=== PATIENT | male | born 1970 | race Caucasian/White ===

== ENCOUNTER 2019-05-22 19:07 | Inpatient (IN) | payer BC ==
[~2019-05-22] VITALS: Ht 188 cm; Wt 121.1 kg
[2019-05-22 21:45] LABS: Basophils # (auto) 0.1 uL; Basophils % (auto) 0.7 % (0.0-2.0); Eosinophils # (auto) 0 uL; Eosinophils % (auto) 0.2 % (0.0-7.0); Hematocrit 36.5 % (41.0-53.0); Hemoglobin 12.8 g/dL (13.5-17.5); Lymphocytes # (auto) 1.3 uL; Lymphocytes % (auto) 11.1 % (10.0-50.0); Mean Corpuscular Hgb Conc. 34.9 g/dL (32.0-36.0); Mean Corpuscular Volume 85.8 fL (80.0-100.0); Monocytes # (auto) 0.7 uL; Monocytes % (auto) 6.4 % (0.0-12.0); Neutrophils # (auto) 9.4 uL; Neutrophils % (auto) 81.6 % (37.0-80.0); Platelet Count (auto) 294 10^3/uL (140-450); Red Blood Cells 4.26 10^6/uL (4.5-5.90); Red Cell Distribution Width 13.3 % (11.8-14.3); White Blood Cell 11.6 10^3/uL (4.4-10.8)
[2019-05-22] MEDS ORDERED: KETOROLAC TROMETH 15 mg/ml 1ML VL IV ONE (21:45)
[2019-05-22] MEDS ORDERED: SODIUM CHLORIDE 0.9% 1,000 ML IV ONE (21:45)
[2019-05-22] MEDS ORDERED: PIPERACILLIN-TAZO 4.5GM 100 ML IV ONE (21:45)
[2019-05-22] MEDS ORDERED: VANCOMYCIN 1GM/250ML 250 ML IV ONE (21:45)
[2019-05-22 21:58] LABS: Calcium 8.9 mg/dL (8.5-10.1); Potassium 3.9 mmol/L (3.5-5.1)
[2019-05-22 22:02] LABS: BUN/Creatinine Ratio 13.2; Bilirubin, Total 0.7 mg/dL (0.2-1.0)
[2019-05-22 22:27] LABS: Urine WBC None Seen /hpf (0 - 3)
[2019-05-22 22:49] LABS: Urine Bacteria NONE SEEN /hpf (None Seen); Urine Blood Negative /uL (Negative); Urine Specific Gravity 1.044 (1.001-1.035)
[2019-05-23] MEDS ORDERED: DEXTROSE (50%) 50ML SYRG IV PRN (02:15)
[2019-05-23] MEDS ORDERED: TEMAZEPAM 15 MG CAP PO PRN (02:15)
[2019-05-23] MEDS ORDERED: ACETAMINOPHEN 500 MG TAB PO PRN (02:15)
[2019-05-23] MEDS ORDERED: VANCOMYCIN PER PHARMACY 0 MG IV SCH (02:15)
[2019-05-23] MEDS ORDERED: ONDANSETRON HCL 4 MG/2 ML VIAL IV PRN (02:15)
[2019-05-23] MEDS ORDERED: SODIUM CHLORIDE 0.9% 1,000 ML IV ONE (02:15)
[2019-05-23 03:17] VITALS: BP 152/82
--- NOTE | 2019-05-23 03:17 | NUR ---
MS admit from [facility] admitted to tele/MS. Patient oriented to [facility] RN primary RN, unit, room, bed, and unit policies regarding patient care and visiting hours. Patient weighed by bedscale and encouraged to call if they need something. All questions and concerns addressed, patient verbalized understanding. Pt stated does not know home meds but will be able to provide later on with home meds. Will continue to monitor pt. Note:
[2019-05-23] MEDS: ACCU-CHEK COMFORT CURVE STRIP VI SCH ×6 (03:49→23:54)
[2019-05-23] MEDS: InsuLIN REG 1unit/0.01ml Soln (100units/ml) SC SCH ×6 (03:49→23:55)
[2019-05-23 05:12] VITALS: BP 152/82
[2019-05-23] MEDS: PIPERACILLIN-TAZOB 3.375GM 100 ML IV SCH ×4 (05:28→23:54)
[2019-05-23] MEDS: PANTOPRAZOLE 40 MG TAB PO SCH (06:41)
--- NOTE | 2019-05-23 07:23 | NUR ---
CLOSING NOTE Report endorsed to day RN, pt awake no s/sx's of distress or sob noted.
[2019-05-23] MEDS ORDERED: METF-371 PO (07:25)
--- NOTE | 2019-05-23 08:00 | NUR ---
Morning note patient resting in bed with even and unlabored respirations, no distress noted. Instructed patient on POC, fall precautions and to call for assistance. Patient verbalized understanding. Fall precautions in place with call light within reach. Will continue to monitor q1hr & PRN.
[2019-05-23 09:00] VITALS: BP 152/84
[2019-05-23] MEDS: LISINOPRIL 20 MG TAB PO SCH (09:16)
[2019-05-23 10:18] LABS: Basophils # (auto) 0.2 uL; Basophils % (auto) 1.7 % (0.0-2.0); Eosinophils # (auto) 0 uL; Eosinophils % (auto) 0.5 % (0.0-7.0); Lymphocytes % (auto) 10.1 % (10.0-50.0); Mean Corpuscular Hemoglobin 30.2 pg (28.0-32.0); Mean Corpuscular Hgb Conc. 35.2 g/dL (32.0-36.0); Mean Corpuscular Volume 85.9 fL (80.0-100.0); Monocytes # (auto) 0.6 uL; Monocytes % (auto) 6.4 % (0.0-12.0); Neutrophils # (auto) 7.8 uL; Neutrophils % (auto) 81.3 % (37.0-80.0); Platelet Count (auto) 266 10^3/uL (140-450); Red Blood Cells 3.96 10^6/uL (4.5-5.90); Red Cell Distribution Width 13.3 % (11.8-14.3); White Blood Cell 9.6 10^3/uL (4.4-10.8)
[2019-05-23 10:22] LABS: BUN/Creatinine Ratio 14.1; Calcium 8.3 mg/dL (8.5-10.1); Potassium 3.8 mmol/L (3.5-5.1)
--- NOTE | 2019-05-23 10:57 | NUR ---
Notified Dr. Alon Foster of MRI results MD verbalized understanding.
--- NOTE | 2019-05-23 11:00 | NUR ---
WOUND CARE NOTE: IN TO SEE PATIENT AT THIS TIME PER WOUND CARE CONSULT REQUEST. PATIENT RECENTLY ADMITTED TO [facility] WITH DIAGNOSIS OF OSTEOMYELITIS OF LEFT # 3 TOE, CELLULITIS. CURRENT BRIAN SCORE IS 20. PATIENT IS ABLE TO AMBULATE, SELF REPOSITION IN BED. PATIENT STATES THAT HE HIT HIS RIGHT # 3 TOE INTO A PIECE OF FURNITURE AT HOME WHILE BAREFOOT APPROXIMATELY ONE WEEK AGO. HE NOTED THE TRAUMA TO HIS TOE, BUT WORE HIS WORK BOOTS AND THICK SOCKS TO WORK FOR SEVERAL DAYS. PATIENT IS DIABETIC, DOES NOT RECEIVE ANY PODIATRY CARE. DIABETIC FOOT WOUND CARE EDUCATION GIVEN TO PATIENT AT THIS TIME, PATIENT VERBALIZED UNDERSTANDING. PATIENT BECAME CONCERNED WHEN WOUND TURNED BLACK. PATIENT HAS RIGHT FOOT NOTED WITH EDEMA, ERYTHEMA. HE HAS A CALLOUSED OVER DFU TO THE RIGHT PLANTAR FOOT DISTAL TO # 1 TOE. LEFT OPEN TO AIR. RIGHT # 3 TOE IS BLACK WITH NECROSIS. THERE IS SCANT SEROUS DRAINAGE NOTED, FOUL ODOR. WOUND CULTURE SENT TO LAB HAS PRELIMINARY OF BOTH GRAM POSITIVE AND NEGATIVE ORGANISMS PRESENT. WOUND PHOTOS TAKEN FOR REFERENCE AT THIS TIME. APPLIED DRY DRESSING. PODIATRY CONSULT IS PENDING. IN THE MEANTIME, PATIENT HAS HAD MRI TO RIGHT FOOT, WELL ULTRASOUND. RECOMMEND: ELEVATION OF LEFT FOOT FOR EDEMA CONTROL, EOD/PRN DRESSING CHANGE PER MD ORDER, DIETARY CONSULT. WILL DEFER ALL OTHER RECOMMENDATIONS TO PODIATRY, PENDING CONSULT. WOUND CARE TEAM WILL CONTINUE TO MONITOR. Addendum: 05/23/19 at 1659 by Cait Wahl RN Amended: Links added. Addendum: 05/23/19 at 1823 by Cait Wahl RN AMENDMENT: ALL WOUNDS ARE ON THE LEFT FOOT, NOT THE RIGHT.
--- NOTE | 2019-05-23 12:27 | NUR ---
Paged PICC line RN per protocol Spoke with CHARO Davila.
[2019-05-23] MEDS: VANCOMYCIN 1,500 MG in D5W 5% 250 ML IV SCH ×2 (12:33→21:59)
--- NOTE | 2019-05-23 12:46 | NUR ---
PICC line consent signed and placed in chart.
--- NOTE | 2019-05-23 12:53 | NUR ---
Notified MD of US results Dr. Alon Foster notified. verbalized understanding. Orders received and read back to verify.
[2019-05-23 13:00] VITALS: BP 143/86
--- NOTE | 2019-05-23 13:30 | NUR ---
IV started 22G IV started with clean technique to the LFA. IV secured. IV education provided. Patient verbalized understanding. Ordered IV medication administered per MD's order.
[2019-05-23 14:57] LABS: INR 1.07 (0.9-1.15); Partial Thromboplastin Time 27.6 sec (23.64-32.05)
--- NOTE | 2019-05-23 16:40 | NUR ---
PICC line placement Patient educated on need for PICC line placement. All risks and benefits explained and all questions and concerns addressed prior to procedure. Noted past medical history and allergies with no contraindications. INR and Plt counts within acceptable range. 5 fr PICC line inserted via right basilic vein using [employer] US and Tip Location System. Sterile technique with maximum barrier precautions utilized. Blood return obtained from each of the two lumens and each flushed easily with NS using proper technique. PICC secured with Stat-lock; biodisc and occlusive dressing applied. Stat portable chest x-ray obtained for PICC tip placement. *Baseline Arm Circumference 32 cm. *Internal Length 46 cm. *External Length 0 cm. *PICC lot #[id number]. Note: EBL 5mls. Tolerated well. Instructions for PICC care given, verbalized understanding.
[2019-05-23] MEDS ORDERED: LIDOCAINE 1% (LOCAL ANESTH.) PF 5ml SDV ID ONE (16:45)
[2019-05-23 17:00] VITALS: BP 158/87
--- NOTE | 2019-05-23 17:50 | NUR ---
Okay to use PICC line X-ray completed.
--- NOTE | 2019-05-23 18:56 | NUR ---
Closing note patient resting in bed with even and unlabored respirations, no distress noted. Fall precautions in place with call light within reach.
--- NOTE | 2019-05-23 19:29 | NUR ---
Care endorsed to HAJA Nicholas.
--- NOTE | 2019-05-23 19:35 | NUR ---
Opening Shift Note Received report from Theresa SMYTH. Assumed care of patient, awake and alert. No S/S of distress/SOB or pain. Instructed on POC and to call for assist PRN, will continue to monitor for changes Q1hr and PRN.
[2019-05-23] MEDS: MORPHINE SULF INJ 2 MG/ML SYRINGE 1ML IV PRN (20:25)
[2019-05-23 22:00] VITALS: BP 140/78
[2019-05-23] MEDS: SODIUM CHLOR 0.9% PF (SALINE LOCK) 10ML VIAL/SYR IV SCH (22:00)
[2019-05-24] MEDS: ACCU-CHEK COMFORT CURVE STRIP VI SCH ×6 (03:56→23:40)
[2019-05-24] MEDS: InsuLIN REG 1unit/0.01ml Soln (100units/ml) SC SCH ×6 (03:56→23:52)
[2019-05-24 04:46] VITALS: BP 155/77
[2019-05-24] MEDS: PIPERACILLIN-TAZOB 3.375GM 100 ML IV SCH ×4 (06:03→23:40)
--- NOTE | 2019-05-24 07:13 | NUR ---
Patient stable at this time, no complaints of pain. Endorsed care to Theresa SMYTH.
[2019-05-24 07:32] LABS: Basophils # (auto) 0.1 uL; Basophils % (auto) 0.8 % (0.0-2.0); Eosinophils # (auto) 0.1 uL; Eosinophils % (auto) 0.9 % (0.0-7.0); Hematocrit 33.4 % (41.0-53.0); Hemoglobin 11.6 g/dL (13.5-17.5); Lymphocytes # (auto) 1.1 uL; Mean Corpuscular Hemoglobin 29.8 pg (28.0-32.0); Mean Corpuscular Hgb Conc. 34.6 g/dL (32.0-36.0); Monocytes # (auto) 0.7 uL; Monocytes % (auto) 6.1 % (0.0-12.0); Neutrophils # (auto) 9.8 uL; Neutrophils % (auto) 83.2 % (37.0-80.0); Platelet Count (auto) 273 10^3/uL (140-450); Red Blood Cells 3.88 10^6/uL (4.5-5.90); Red Cell Distribution Width 13.1 % (11.8-14.3); White Blood Cell 11.8 10^3/uL (4.4-10.8)
[2019-05-24 07:53] LABS: Anion Gap 10 (5-15); BUN/Creatinine Ratio 11.4; Blood Urea Nitrogen 8 mg/dL (7-18); Calcium 8.3 mg/dL (8.5-10.1); Carbon Dioxide 25 mmol/L (21-32); Chloride 102 mmol/L (98-107); GFR African American 154 mL/min; GFR Non-African American 127 mL/min; Glucose 198 mg/dL (74-106); Potassium 3.9 mmol/L (3.5-5.1); Sodium 137 mmol/L (136-145)
[2019-05-24] MEDS: PANTOPRAZOLE 40 MG TAB PO SCH (08:33)
[2019-05-24] MEDS: LISINOPRIL 20 MG TAB PO SCH (08:33)
[2019-05-24] MEDS: SODIUM CHLOR 0.9% PF (SALINE LOCK) 10ML VIAL/SYR IV SCH ×2 (08:35→22:56)
--- NOTE | 2019-05-24 08:44 | NUR ---
IV discontinued IV removed from RAC with clean technique, catheter intact. Dressing applied. Patient tolerated well. No trauma to site.
[2019-05-24 09:00] VITALS: BP 151/83
[2019-05-24] MEDS: VANCOMYCIN 1,500 MG in D5W 5% 250 ML IV SCH ×2 (09:51→22:55)
[2019-05-24 13:00] VITALS: BP 147/82
[2019-05-24 17:00] VITALS: BP 147/77
--- NOTE | 2019-05-24 18:38 | NUR ---
Closing note patient resting in bed with even and unlabored respirations, no distress noted. Fall precautions in place with call light within reach.
--- NOTE | 2019-05-24 19:21 | NUR ---
Care endorsed HAJA Romano.
--- NOTE | 2019-05-24 20:00 | NUR ---
Opening Shift Note Assumed care of patient, awake and alert. No S/S of distress/SOB or pain. Instructed on POC and to call for assist PRN, will continue to monitor for changes Q1hr and PRN.Advised no food or drink after midnight..
[2019-05-24 21:30] VITALS: BP 159/82
[2019-05-24] MEDS: MORPHINE SULF INJ 2 MG/ML SYRINGE 1ML IV PRN (22:55)
[2019-05-25] MEDS: ACCU-CHEK COMFORT CURVE STRIP VI SCH ×5 (03:49→20:49)
[2019-05-25] MEDS: InsuLIN REG 1unit/0.01ml Soln (100units/ml) SC SCH ×5 (03:49→20:51)
[2019-05-25 04:51] VITALS: BP 153/82
[2019-05-25] MEDS: PIPERACILLIN-TAZOB 3.375GM 100 ML IV SCH (05:42)
[2019-05-25] MEDS: PANTOPRAZOLE 40 MG TAB PO SCH (06:33)
--- NOTE | 2019-05-25 07:12 | NUR ---
Report given to Markie Cardenas ,patient is resting no distress.
[2019-05-25 09:00] VITALS: BP 168/92
[2019-05-25] MEDS ORDERED: cefTRIAXone 1GM/50ML D5W 50 ML IV ONE ×2 (09:30→16:00)
[2019-05-25] MEDS: SODIUM CHLOR 0.9% PF (SALINE LOCK) 10ML VIAL/SYR IV SCH ×2 (09:36→22:30)
[2019-05-25] MEDS: LISINOPRIL 20 MG TAB PO SCH (09:36)
--- NOTE | 2019-05-25 10:14 | NUR ---
I faxed home IV ATB order to [facility].
--- NOTE | 2019-05-25 11:54 | NUR ---
MD was at bedside - Dr. Sherrie CAMACHO changed dressing to left foot. Orders received and read back to verify.
[2019-05-25] MEDS ORDERED: METOPROLOL TARTRATE 50 MG TAB PO ONE (12:15)
[2019-05-25 13:00] VITALS: BP 165/88
[2019-05-25] MEDS ORDERED: SODIUM CHL 0.9% 50 ML ONE (13:16)
[2019-05-25] MEDS ORDERED: ANGIOMAX 250 MG VIAL IV ONE (13:16)
[2019-05-25] MEDS ORDERED: fentaNYL CITRATE 100 MCG/2 ML VL ONE (13:16)
[2019-05-25] MEDS ORDERED: MIDAZOLAM HCL 1MG/1ML-2 ML VIAL ONE (13:16)
--- NOTE | 2019-05-25 13:20 | NUR ---
RE: Intervention patient off unit at this time. Addendum: 05/25/19 at 1320 by Theresa Rodriguez RN Amended: Links added.
[2019-05-25] MEDS ORDERED: IOHEXOL 350 MG/ML 100ML IJ ONE (13:35)
--- NOTE | 2019-05-25 15:04 | NUR ---
NUTRITION ASSESSMENT NOTES Please refer to link notes of nutrition screen form filed under the intervention section of the plan of care for further details. Est. Needs: 2250 kcal to 2550 kcal (20-23 kcal/kgBW), 86 gms to 112 gms pro (1.0-1.3 gms/kgBW for wound healing). Will continue to monitor pertinent labs and reassess nutrient need prn Thank you. Addendum: 05/25/19 at [address] Amended: Links added.
--- NOTE | 2019-05-25 15:24 | NUR ---
RE: intervention patient off unit at scheduled procedure. Addendum: 05/25/19 at 1524 by Theresa Rodriguez RN Amended: Links added.
--- NOTE | 2019-05-25 15:39 | NUR ---
Patient returned to the unit Via hospital bed. Catheterization site assessed for any bleeding, redness or swelling. Angio seal device in place. Pedal pulses on affected leg assessed for positive tissue perfusion. Patient instructed on need to notify staff immediately if any pain, burning or wetness to site, and any lower back pain. All questions and concerns addressed, patient verbalized understanding of all education and instruction. Patient instructed to remain supine until said time. Patient verbalized understanding. Call light within reach. Patient's spouse at bedside.
--- NOTE | 2019-05-25 16:15 | NUR ---
catheterization site assessed Right groin site is clean, dry and intact with no bleeding noted. Pedal pulses assessed. Patient remains in supine position. Respirations even and unlabored, no distress noted.
[2019-05-25] MEDS: CLINDAMYCIN 600MG IV 50 ML IV SCH ×2 (16:16→22:29)
[2019-05-25 16:38] VITALS: BP 152/78
--- NOTE | 2019-05-25 17:09 | NUR ---
catheterization site assessed Right groin site is clean, dry and intact with no bleeding noted. Pedal pulses assessed. Patient no longer required to remain flat. Patient instructed to notify staff immediately if status changes. Patient verbalized understanding. Respirations even and unlabored, no distress noted. Call light within reach.
--- NOTE | 2019-05-25 18:56 | NUR ---
Closing note patient resting in bed with even and unlabored respirations, no distress noted. Fall precautions in place with call light within reach. Right groin is clean, dry and intact with no bleeding noted. Pedal pulses assessed. Wound dressing to the left foot is clean, dry and intact. Foul odor present.
--- NOTE | 2019-05-25 19:26 | NUR ---
Care endorsed to HAJA Valdez.
--- NOTE | 2019-05-25 20:00 | NUR ---
Opening Shift Note Assumed care of patient, awake and alert, oriented x 4. On room air with even and unlabored respirations. No S/S of distress/SOB or pain. Patient using urinal. Patient turns independently in bed. Dressing to left foot CDI. Patient denies pain. PICC to right upper arm intact and patent. Instructed on POC and to call for assist PRN, will continue to monitor for changes Q1hr and PRN.
[2019-05-25 22:00] VITALS: BP 153/86
[2019-05-25] MEDS: DAKINS HALF STR 0.25% (NaHypochlorite) 473 ML TOPICAL SOL TOP SCH (22:30)
[2019-05-25] MEDS: METOPROLOL TARTRATE 50 MG TAB PO SCH (22:30)
--- NOTE | 2019-05-25 22:35 | NUR ---
Wound Dressing Changed per orders patient tolerated well.
[2019-05-26] MEDS: InsuLIN REG 1unit/0.01ml Soln (100units/ml) SC SCH ×6 (00:04→20:16)
[2019-05-26] MEDS: ACCU-CHEK COMFORT CURVE STRIP VI SCH ×6 (00:04→20:16)
[2019-05-26] MEDS: PANTOPRAZOLE 40 MG TAB PO SCH (05:31)
[2019-05-26] MEDS: CLINDAMYCIN 600MG IV 50 ML IV SCH ×3 (05:47→21:44)
[2019-05-26 06:01] VITALS: BP 145/78
--- NOTE | 2019-05-26 07:00 | NUR ---
Closing note patient resting in bed with even and unlabored respirations, no distress noted. Right groin catheterization site is clean, dry and intact with no bleeding noted. endorsed care to day shift RN.
[2019-05-26] MEDS ORDERED: cefTRIAXone 1GM/50ML D5W 50 ML IV SCH (09:00)
[2019-05-26] MEDS: LISINOPRIL 20 MG TAB PO SCH (09:08)
[2019-05-26] MEDS: METOPROLOL TARTRATE 50 MG TAB PO SCH ×2 (09:09→21:45)
[2019-05-26] MEDS: SODIUM CHLOR 0.9% PF (SALINE LOCK) 10ML VIAL/SYR IV SCH ×2 (09:09→21:48)
[2019-05-26 09:17] VITALS: BP 145/78
[2019-05-26] MEDS: CEFTRIAXONE SODIUM 2 GM in D5W 5% 50 ML IV SCH (09:39)
[2019-05-26] MEDS: DAKINS HALF STR 0.25% (NaHypochlorite) 473 ML TOPICAL SOL TOP SCH ×2 (10:00→21:48)
[2019-05-26 10:48] LABS: Basophils # (auto) 0.1 uL; Basophils % (auto) 0.9 % (0.0-2.0); Eosinophils # (auto) 0.1 uL; Hematocrit 33.5 % (41.0-53.0); Hemoglobin 11.8 g/dL (13.5-17.5); Lymphocytes # (auto) 1.3 uL; Lymphocytes % (auto) 11.7 % (10.0-50.0); Mean Corpuscular Hemoglobin 30.1 pg (28.0-32.0); Mean Corpuscular Hgb Conc. 35.1 g/dL (32.0-36.0); Mean Corpuscular Volume 85.9 fL (80.0-100.0); Monocytes # (auto) 0.6 uL; Monocytes % (auto) 5.2 % (0.0-12.0); Neutrophils # (auto) 8.7 uL; Neutrophils % (auto) 81.2 % (37.0-80.0); Nucleated Red Blood Cells % 0.1 %; Platelet Count (auto) 304 10^3/uL (140-450); Red Cell Distribution Width 13.4 % (11.8-14.3); White Blood Cell 10.7 10^3/uL (4.4-10.8)
--- NOTE | 2019-05-26 12:45 | NUR ---
SPOKE WITH THE MILK BOTTLING MACHINE OPERATOR AT DR MELO OFFICE, NOTIFIED OF PT WBC 10.7 AWAITING FURTHER ORDERS REGARDING PT SURGERY. DR GIL IN TO SEE PT, STATED PT IS CLEARED FOR SURGERY.
[2019-05-26 13:00] VITALS: BP 152/99
[2019-05-26 17:27] VITALS: BP 153/79
--- NOTE | 2019-05-26 21:30 | NUR ---
Wound Dressing Changed per orders patient tolerated well. pedal pulse 3+ even and regular, brisk capillary refill, +2 pitting edema.
[2019-05-26 21:41] VITALS: BP 156/86
[2019-05-27] MEDS: ACCU-CHEK COMFORT CURVE STRIP VI SCH ×7 (00:22→23:55)
[2019-05-27] MEDS: InsuLIN REG 1unit/0.01ml Soln (100units/ml) SC SCH ×6 (00:24→22:00)
[2019-05-27 04:35] VITALS: BP 143/57
[2019-05-27] MEDS: PANTOPRAZOLE 40 MG TAB PO SCH (06:26)
[2019-05-27] MEDS: CLINDAMYCIN 600MG IV 50 ML IV SCH (06:26)
--- NOTE | 2019-05-27 06:59 | NUR ---
Closing note patient resting in bed with even and unlabored respirations, no distress noted. patient remains NPO. Dressing to left foot CDI. endorsed care to day shift RN.
[2019-05-27 08:45] VITALS: BP 143/78
[2019-05-27] MEDS: SODIUM CHLORIDE 0.9% 1,000 ML IV SCH ×2 (09:28→22:08)
[2019-05-27] MEDS: SODIUM CHLOR 0.9% PF (SALINE LOCK) 10ML VIAL/SYR IV SCH ×2 (09:29→21:59)
[2019-05-27] MEDS: METOPROLOL TARTRATE 50 MG TAB PO SCH ×2 (09:33→21:59)
[2019-05-27] MEDS: LISINOPRIL 20 MG TAB PO SCH (09:33)
[2019-05-27] MEDS: CEFTRIAXONE SODIUM 2 GM in D5W 5% 50 ML IV SCH (09:34)
[2019-05-27] MEDS: DAKINS HALF STR 0.25% (NaHypochlorite) 473 ML TOPICAL SOL TOP SCH ×2 (10:00→22:00)
[2019-05-27 10:21] LABS: INR 1.11 (0.9-1.15); Partial Thromboplastin Time 26.4 sec (23.64-32.05)
[2019-05-27 13:00] VITALS: BP 146/79
--- NOTE | 2019-05-27 14:12 | NUR ---
I faxed updated home IV ATB order to [facility], I faxed home health order to [facility].
[2019-05-27] MEDS ORDERED: ceFAZolin 1GM/50ML 0 ML IV ONE (14:27)
--- NOTE | 2019-05-27 14:38 | NUR ---
OFF FLOOR TO OR AT THIS TIME
--- NOTE | 2019-05-27 14:39 | NUR ---
I called [facility] [phone] and spoke with Aditi, she did get the fax regarding changing the IV ATB to Rocephin-she said that should bring down patient's co-pay-she had already spoken with patient's about the co-pay and she was agreeable-she will let her know what the new co-pay should be. I also let Aditi know that patient is requesting [facility], she will reach out to them regarding their availability and give me a call back. I let Aditi know that patient is having a procedure today and that I would follow up with her tomorrow regarding discharge date.
--- NOTE | 2019-05-27 15:45 | NUR ---
I received a message from Ariel at [facility] letting me know that they are not contracted with patient's insurance and can not accept him.
--- NOTE | 2019-05-27 18:49 | NUR ---
PT OFF FLOOR AT 1415 TO PREOP. AT 1750, PT BROUGHT BACK TO FLOOR, RECEIVED REPORT THAT PT DID NOT HAVE SURGERY DUE TO EMERGENCY IN IN THE OR. SPOKE WITH DR MELO VIA TELEPHONE, WHO STATED HE WILL DO SURGERY ON PT TONIGHT AT 1999. PT INFORMED OF UPDATE, VERBALIZED UNDERSTANDING TO REMAIN NPO.
[2019-05-27] MEDS ORDERED: LIDOCAINE 1% HCL (LOCAL ANESTH.) INJ 20ML MDV ONE (19:27)
[2019-05-27] MEDS ORDERED: ceFAZolin 1GM/50ML 100 ML IV ONE (19:28)
--- NOTE | 2019-05-27 19:30 | NUR ---
PT IS OFF THE FLOOR FOR SURGERY.
[2019-05-27] MEDS ORDERED: MIDAZOLAM HCL 1MG/1ML-2 ML VIAL ONE ×3 (19:37→19:59)
[2019-05-27] MEDS ORDERED: diphenhdrAMINE HCL 50 MG/1 ML VL ONE (19:38)
[2019-05-27] MEDS ORDERED: GLYCOPYRROLATE 0.2 MG/ML 1ML VIAL ONE (19:38)
[2019-05-27] MEDS ORDERED: METOCLOPRAMIDE HCL 5MG/ml INJ 2ml VIAL ONE (19:38)
[2019-05-27] MEDS ORDERED: LIDOCAINE 2% (LOCAL ANESTH.) PF 5ml SDV ONE (19:39)
[2019-05-27] MEDS ORDERED: PROPOFOL 10 MG/ML 20 ML IV ONE (19:40)
[2019-05-27] MEDS ORDERED: fentaNYL CITRATE 100 MCG/2 ML VL ONE (20:00)
[2019-05-27] MEDS ORDERED: ESMOLOL HCL 10 ML IV ONE (20:09)
[2019-05-27] MEDS ORDERED: NALOXONE HCL 0.4 MG/ML VIAL IV PRN (20:45)
[2019-05-27] MEDS ORDERED: ONDANSETRON HCL 4 MG/2 ML VIAL IV ONE (20:45)
[2019-05-27] MEDS ORDERED: HYDROmorphone HCL 2 MG/ML VL IV PRN ×2 (20:45)
[2019-05-27] MEDS ORDERED: ACCU-CHEK COMFORT CURVE STRIP VI ONE (20:45)
[2019-05-27] MEDS: hydrALAZINE HCL 20 MG/ML VL IV PRN ×2 (20:46→21:06)
--- NOTE | 2019-05-27 21:22 | NUR ---
SPOKE WITH DR. GILLIAM, PATIENT IS TO STAY FOR A FULL DAY TOMORROW IN THE HOSPITAL, WILL CHECK CBC IN THE MORNING AND WILL DETERMINE IF PATIENT WILL NEED BLOOD TRANSFUSION. IT PATIENT IS TO BE DISCHARGED ON SATURDAY, WILL NEED HOME HEALTH FOR WOUND CARE. THIS IS PER DR. GILLIAM.
[2019-05-27 21:30] VITALS: BP 165/88
--- NOTE | 2019-05-27 21:50 | NUR ---
RECEIVED PATIENT VIA BED, LEFT FOOT DRESSING INTACT WITH SOME BLOOD ON THE DRESSING. PATIENT IS AWAKE, ALERT AND ORIENTED X 4, DENIES ANY PAIN, VITAL SIGNS CHECKED. WILL KEEP MONITORING.
[2019-05-28] MEDS: MORPHINE SULF INJ 2 MG/ML SYRINGE 1ML IV PRN ×3 (00:02→17:44)
[2019-05-28 00:37] VITALS: BP 158/74
[2019-05-28] MEDS: InsuLIN REG 1unit/0.01ml Soln (100units/ml) SC SCH ×6 (00:37→19:53)
[2019-05-28] MEDS: ACCU-CHEK COMFORT CURVE STRIP VI SCH ×5 (04:03→19:49)
[2019-05-28] MEDS: SODIUM CHLORIDE 0.9% 1,000 ML IV SCH ×2 (04:29→15:00)
[2019-05-28 05:00] VITALS: BP 156/67
[2019-05-28 05:33] LABS: Basophils # (auto) 0.1 uL; Basophils % (auto) 0.6 % (0.0-2.0); Eosinophils # (auto) 0 uL; Eosinophils % (auto) 0.2 % (0.0-7.0); Hematocrit 34.2 % (41.0-53.0); Lymphocytes # (auto) 1.4 uL; Lymphocytes % (auto) 8.7 % (10.0-50.0); Mean Corpuscular Hemoglobin 29.9 pg (28.0-32.0); Mean Corpuscular Hgb Conc. 35.2 g/dL (32.0-36.0); Monocytes # (auto) 0.9 uL; Monocytes % (auto) 6.1 % (0.0-12.0); Neutrophils % (auto) 84.4 % (37.0-80.0); Nucleated Red Blood Cells % 0.1 %; Platelet Count (auto) 332 10^3/uL (140-450); Red Blood Cells 4.02 10^6/uL (4.5-5.90); Red Cell Distribution Width 13.4 % (11.8-14.3); White Blood Cell 15.4 10^3/uL (4.4-10.8)
[2019-05-28] MEDS: PANTOPRAZOLE 40 MG TAB PO SCH (05:56)
[2019-05-28 08:51] VITALS: BP 149/75
[2019-05-28] MEDS: SODIUM CHLOR 0.9% PF (SALINE LOCK) 10ML VIAL/SYR IV SCH ×2 (09:40→21:58)
[2019-05-28] MEDS: DAKINS HALF STR 0.25% (NaHypochlorite) 473 ML TOPICAL SOL TOP SCH ×3 (09:41→21:58)
[2019-05-28] MEDS: LISINOPRIL 20 MG TAB PO SCH (09:47)
[2019-05-28] MEDS: METOPROLOL TARTRATE 50 MG TAB PO SCH ×2 (09:48→21:57)
[2019-05-28] MEDS: CEFTRIAXONE SODIUM 2 GM in D5W 5% 50 ML IV SCH (09:57)
[2019-05-28 13:00] VITALS: BP 126/71
--- NOTE | 2019-05-28 13:35 | NUR ---
I spoke with Aditi at [facility], she said that they can provide home health for the IV ATB but not for wound care. I spoke with nurse Cristina to request order (social service consult) for home health for wound care-will reach out to [facility].
--- NOTE | 2019-05-28 13:40 | NUR ---
I faxed home health for wound care order to [facility].
--- NOTE | 2019-05-28 14:28 | NUR ---
WOUND CARE NOTE: Wound care in to see patient due to new wound care request received regarding dressing change. Patient continue resting in bed in Rm. 206. He's awake, alert and fully oriented. Patient premedicated for pain by his bedside nurse prior dressing change. Patient is one day s/p I&D of all non-viable tissue and bone left foot by Dr. Balderas. Removed patient's L foot wound dressing and packing. Irrigated wounds with Dakins solution. Patient's L plantar foot wound/incision measuring [id number]. Wound is red with pink nain wound, minimal serosanguineous drainage noted, no odor noted. Patient's L 3rd toe is missing with open wound measuring 3x2x1.5cm. Wound is red with minimal sanguinous drainage, no odor noted. Cleansed wound with Dakins solution, packed L plantar foot wound cavity with 1/2 inch plain packing strips soaked with Dakins solution, covered wounds with multilayers of 4x4's gauze. 3rd toe digit wound covered with wtd 4x4 gauze with Dakins, wrapped L foot with two large Kerlix and secured with tape.New photograph of wounds are taken for reference. Patient tolerated well. RECOMMENDATION: Follow Dr. Balderas BID dressing change orders, continue with skin/wound plan of care, continue monitoring by wound care while patient is hospitalized. Addendum: 05/28/19 at 1900 by Lucina iWnston RN Amended: Links added.
--- NOTE | 2019-05-28 14:53 | NUR ---
I received a call from [facility] letting me know that they do not contract with [facility] and they can not accept this patient. I also called [facility] and was told that they do not have a contract with [facility].
--- NOTE | 2019-05-28 14:56 | NUR ---
I called [facility] [phone] and spoke with Abraham, he said they do not have a contract with [facility].
--- NOTE | 2019-05-28 15:00 | NUR ---
I faxed home health order to [facility].
--- NOTE | 2019-05-28 15:37 | NUR ---
I received a message from Fatimah at [facility] letting me know that they can not accept this patient.
--- NOTE | 2019-05-28 15:55 | NUR ---
I faxed home health/wound care order to [facility].
--- NOTE | 2019-05-28 16:36 | NUR ---
DRESSING CHANGE DONE PER WOUND RN AND BEDSIDE RN. PT MEDICATED PRIOR TO CHANGE. TOLERATED FAIR. PRESENTLY PT IS AWAKE, ALERT, ORIENTED, REPORTING PAIN AT A TOLERABLE LEVEL. EDUCATED ON PAIN MANAGEMENT, PT VERBALIZED UNDERSTANDING.
[2019-05-28 17:04] VITALS: BP 134/72
[2019-05-28 22:00] VITALS: BP 119/68
[2019-05-29] MEDS: InsuLIN REG 1unit/0.01ml Soln (100units/ml) SC SCH ×5 (00:02→17:55)
[2019-05-29] MEDS: SODIUM CHLORIDE 0.9% 1,000 ML IV SCH ×2 (01:00→12:53)
[2019-05-29] MEDS: ACCU-CHEK COMFORT CURVE STRIP VI SCH ×5 (04:05→17:55)
[2019-05-29] MEDS: MORPHINE SULF INJ 2 MG/ML SYRINGE 1ML IV PRN (04:10)
[2019-05-29 05:00] VITALS: BP 155/84
[2019-05-29] MEDS: DAKINS HALF STR 0.25% (NaHypochlorite) 473 ML TOPICAL SOL TOP SCH (05:22)
--- NOTE | 2019-05-29 05:23 | NUR ---
WOUND DRESSING CHANGE CHANGED DRESSING ON LEFT FOOT USING ASEPTIC TECHNIQUE WITH DAKIN SOLUTION ORDERED. PREMEDICATED PATIENT WITH MORPHINE REQUESTED BY PATIENT.
[2019-05-29] MEDS: PANTOPRAZOLE 40 MG TAB PO SCH (06:17)
[2019-05-29 06:33] LABS: Basophils # (auto) 0.1 uL; Basophils % (auto) 0.9 % (0.0-2.0); Eosinophils # (auto) 0.2 uL; Eosinophils % (auto) 3.2 % (0.0-7.0); Hematocrit 31.1 % (41.0-53.0); Hemoglobin 10.9 g/dL (13.5-17.5); Lymphocytes # (auto) 1.7 uL; Mean Corpuscular Hemoglobin 29.8 pg (28.0-32.0); Mean Corpuscular Hgb Conc. 35.2 g/dL (32.0-36.0); Mean Corpuscular Volume 84.6 fL (80.0-100.0); Monocytes # (auto) 0.5 uL; Monocytes % (auto) 7.7 % (0.0-12.0); Neutrophils # (auto) 4.4 uL; Neutrophils % (auto) 63.2 % (37.0-80.0); Nucleated Red Blood Cells % 0.1 %; Platelet Count (auto) 323 10^3/uL (140-450); Red Blood Cells 3.67 10^6/uL (4.5-5.90); Red Cell Distribution Width 13.7 % (11.8-14.3)
[2019-05-29 09:00] VITALS: BP 151/78
--- NOTE | 2019-05-29 09:55 | NUR ---
Dr.H Foster at bedside Dr.H Foster at bedside reviewing plan of care with patient.
--- NOTE | 2019-05-29 10:18 | NUR ---
Called Shweta from case management Called Shweta from case management regarding patients discharge order. Awaiting call back
[2019-05-29] MEDS: LISINOPRIL 20 MG TAB PO SCH (10:33)
[2019-05-29] MEDS: SODIUM CHLOR 0.9% PF (SALINE LOCK) 10ML VIAL/SYR IV SCH (10:34)
[2019-05-29] MEDS: METOPROLOL TARTRATE 50 MG TAB PO SCH (10:34)
[2019-05-29 10:46] VITALS: BP 151/77
[2019-05-29] MEDS: CEFTRIAXONE SODIUM 2 GM in D5W 5% 50 ML IV SCH (12:53)
[2019-05-29 13:12] VITALS: BP 152/81
--- NOTE | 2019-05-29 13:25 | NUR ---
Spoke with Shweta from case management Staed the patients home health is being set up, and she will call me back later. Will continue to monitor Q1 hour and PRN.
--- NOTE | 2019-05-29 13:52 | NUR ---
Spoke with Teofilo Updated her on patients pending discharge.
[2019-05-29 16:46] VITALS: BP 148/82
--- NOTE | 2019-05-29 17:17 | NUR ---
Spoke with Shweta from case management Patient is Ok to be discharged tonight. [facility] , and [facility] are set up. Patient and provided with information and phone numbers.
--- NOTE | 2019-05-29 17:53 | NUR ---
I spoke with Aditi from [facility], she will contact family about delivery time. I spoke with Sharri from [facility], they will make first visit to patient tomorrow.
--- NOTE | 2019-05-29 18:55 | NUR ---
Discharge Discharge instructions given as ordered. Patient has no primary care physician. Information given to patient from continuum care assistant Lyn. Patient is begin [facility] and [facility]. All questions and concerns addressed. Patient verbalized understanding. New prescriptions given to patient. at bedside. Patient taken down to private vehicle via wheelchair accompanied by staff and family member. No signs or symptoms of distress noted at this time.
== END 2019-05-29 18:55 | disposition home health service (06) | DRG 617 ==
LOC: ER 19:19 → OVERFLOW 19:20 → CENTRAL 05-23 03:19
PROVIDERS: ADMIT Nurse Practitioner Family; ATTEND Family Medicine
PROC: 02HV33Z Insertion of Infusion Device into Superior Vena Cava, Percutaneous Approach (ICD-10-PCS; 2019-05-23)
PROC: B41G1ZZ Fluoroscopy of Left Lower Extremity Arteries using Low Osmolar Contrast (ICD-10-PCS; 2019-05-25)
PROC: B41F1ZZ Fluoroscopy of Right Lower Extremity Arteries using Low Osmolar Contrast (ICD-10-PCS; 2019-05-25)
PROC: 0LBW0ZZ Excision of Left Foot Tendon, Open Approach (ICD-10-PCS; 2019-05-27)
PROC: 0Y6U0Z0 Detachment at Left 3rd Toe, Complete, Open Approach (ICD-10-PCS; principal; 2019-05-27 19:31)
DX: E11.69 Type 2 diabetes mellitus with other specified complication (principal); E11.52 Type 2 diabetes mellitus with diabetic peripheral angiopathy with gangrene; E87.1 Hypo-osmolality and hyponatremia; L02.612 Cutaneous abscess of left foot; L03.116 Cellulitis of left lower limb; L97.909 Non-pressure chronic ulcer of unspecified part of unspecified lower leg with unspecified severity; M86.8X7 Other osteomyelitis, ankle and foot; D64.9 Anemia, unspecified; E11.21 Type 2 diabetes mellitus with diabetic nephropathy; E11.40 Type 2 diabetes mellitus with diabetic neuropathy, unspecified; E11.628 Type 2 diabetes mellitus with other skin complications; E11.65 Type 2 diabetes mellitus with hyperglycemia; I10 Essential (primary) hypertension; N28.9 Disorder of kidney and ureter, unspecified; Z83.3 Family history of diabetes mellitus; Z89.429 Acquired absence of other toe(s), unspecified side; Z91.14 Patient's other noncompliance with medication regimen; Z79.84 Long term (current) use of oral hypoglycemic drugs
CPT/HCPCS: 36415; 36569; 36600; 71045; 73630; 73718; 80048; 80053; 80202; 81001; 82010; 82805; 82962; 83036; 83605; 85025; 85610; 85730; 86141; 86850; 86900; 86901; 87040; 87070; 87075; 87077; 87186; 87205; 93005; 93925; 96365; 96366; 96368; 99152; C1769; G0378; J0690; J0696; J1815; J2001; J2250; J2543; J2704; J3490; J7060